=== PATIENT | male | born 1980 | race African-American/Black ===

== ENCOUNTER 2017-08-21 22:48 | Emergency (ER) | payer MEDICAID ==
[~2017-08-21] VITALS: Ht 175.3 cm; Wt 85.6 kg
[2017-08-22] MEDS ORDERED: PREDNISONE 20MG TABLET PO ONE (00:45)
[2017-08-22] MEDS ORDERED: KETOROLAC 60MG/2ML VIAL IM ONE (00:45)
[2017-08-22 02:10] VITALS: BP 120/88
== END 2017-08-22 02:11 | disposition home or self-care (01) ==
LOC: ER 22:48
DX: H10.9 Unspecified conjunctivitis (principal); J02.9 Acute pharyngitis, unspecified
CPT/HCPCS: 87070; 87430; 96372; 99284; J1885; J7512; Z7610